=== PATIENT | male | born 1995 | race Caucasian/White ===

== ENCOUNTER 2016-12-02 21:50 | Emergency (ER) | payer SELFPAY ==
[~2016-12-02] VITALS: Ht 175.3 cm; Wt 112.9 kg
--- OUTSIDE RECORDS SUMMARY | 2016-12-02 21:59 | XMS REPORT ---
Author Author SHERRI MICHELE Organization [employer] Address Unknown Phone Unavailable Care Team Providers Care Tripper Name Role Phone SHERRI MICHELE CP Unavailable Allergies, Adverse Reactions, Alerts Substance Reaction Event Type N.K.D.A. Info Not Available Non Drug Allergy Problems Problem Type Condition Code Onset Dates Condition Status Problem Unspecified conjunctivitis 372.30 Active Problem Cough 786.2 Active Problem Nausea with vomiting 787.01 Active Problem Unspecified otalgia 388.70 Active Assessment Puncture wound without foreign body of unspecified finger without damage to nail, initial encounter S61.239A Active Problem Other diseases of nasal cavity and sinuses 478.19 Active Problem Acute suppurative otitis media without spontaneous rupture of eardrum 382.00 Active Medications Medication Code System Code Instructions Start Date End Date Status Dosage Augmentin [facility] [address]-66 875-125 MG Orally every 12 hrs Jan 24, 2015 Feb 03, 2015 1 tablet Procedures Procedure Coding System Code Date CULTURE, BACTERIA, OTHER CPT-4 01285 Jan 24, 2015 Office Visit, Est Pt., Level 3 CPT-4 55526 Jan 24, 2015 CULTURE BACTERIA ANAEROBIC CPT-4 14029 Jan 24, 2015 Vital Signs Date/Time: Jan 24, 2015 Temperature 97 F Weight 254 lbs Height 70.5 in BMI 35.93 Index Blood Pressure Diastolic 70 mmHg Blood Pressure Systolic 126 mmHg Cardiac Monitoring Heart Rate 80 bpm BMIPercentile 99.18 % Wt Percentile 99.36 % Results Name Result Date Reference Range Unit Abnormality Flag CULTURE, ANAEROBIC AND AEROBIC Summary Purpose [employer] Submission
--- NOTE | 2016-12-02 23:44 | ED Abdominal Pain ---
General Chief Complaint: -Male Stated Complaint: RT TESTICULAR PAIN/SWELLING Nursing Triage Note: PT STATES HE IS HAVING RIGHT TESTICULAR PAIN SINCE YESTERDAY. PT STATES "IT FEELS LIKE IT IS TWISTED". PT STATES HE HASN'T DONE ANYTHING DIFFERENT TO CAUSE THIS PAIN. PT STATES HE JUST LEFT [facility] A COUPLE HOURS AGO FOR THIS SAME REASON. Sepsis Screen: No Definite Risk Source of Information: Patient Exam Limitations: No Limitations History of Present Illness Time Seen By Provider: 23:26 Initial Comments Patient presents to ER with a primary complaint of right lower quadrant pain that seems to start in his back and right flank and extends to his right testicle. He feels that he has not injured his back or testicle recently. No history of hernia or other surgeries on the abdomen. No fevers, chills, sweats, malaise, nausea, vomiting, diarrhea, constipation, rash. No dysuria or discharge. Sexually monogamous with his . Allergies and Home Medications Allergies Coded Allergies: No Known Drug Allergies (Unverified , 12/02/16) Review of Systems Constitutional: No chills, No diaphoresis, No fever, No malaise, No weakness Respiratory: Denies Cough, Denies Shortness of Air Cardiovascular: Denies Chest Pain, Denies Lightheadedness Gastrointestinal: See HPI, Abdominal Pain (R flank), Denies Diarrhea, Denies Nausea, Denies Vomiting Genitourinary: Denies Burning, Denies Discharge, Denies Frequency Musculoskeletal: back pain (right lumbar) Skin: No pruritus, No rash Psychiatric/Neurological: Denies Headache, Denies Numbness, Denies Paresthesia Past [id number]-[id number]-Tsiyyd Hx Patient Social History Alcohol Use: Denies Use Recreational Drug Use: No Smoking Status: Never a Smoker 2nd Hand Smoke Exposure: No Recent Foreign Travel: No Contact w/Someone Who Travel: No Recent Infectious Disease Expo: No Recent Hopitalizations: No Immunizations Up To Date PED Vaccines UTD: No Seasonal Allergies Seasonal Allergies: No Physical Exam Vital Signs VS - Last 72 Hours, by Label 12/02/16 22:10 Temp 97.6 Pulse 85 Resp 20 B/P (MAP) 120/74 Pulse Ox 98 O2 Delivery Room Air Capillary Refill : Less Than 3 Seconds General Appearance: WD/WN, no apparent distress HEENT: PERRL/EOMI, pharynx normal Neck: non-tender, supple Respiratory: chest non-tender, lungs clear Gastrointestinal: normal bowel sounds, non tender, soft, no organomegaly Genital/Rectal: normal genital exam, No tenderness, other (testicle is nontender and unremarkable and palpation. No erythema or edema) Extremities: normal capillary refill (ER 60) Progress/Results/Core Measures Results/Orders Lab Results Laboratory Tests Test 12/02/16 23:48 Range/Units Urine Color YELLOW Urine Clarity CLEAR Urine pH 7 5-9 Urine Specific [place] 1.015 L 1.016-1.022 Urine Protein NEGATIVE NEGATIVE Urine Glucose (UA) NEGATIVE NEGATIVE Urine Ketones NEGATIVE NEGATIVE Urine Nitrite NEGATIVE NEGATIVE Urine Bilirubin NEGATIVE NEGATIVE Urine Urobilinogen NORMAL NORMAL MG/DL Urine Leukocyte Esterase NEGATIVE NEGATIVE Urine RBC (Auto) NEGATIVE NEGATIVE Urine RBC NONE /HPF Urine WBC NONE /HPF Urine Squamous Epithelial Cells RARE /HPF Urine Crystals NONE /LPF Urine Bacteria NEGATIVE /HPF Urine Casts NONE /LPF Urine Mucus NEGATIVE /LPF Urine Culture Indicated NO My Orders Orders - KATHIA CONNOR Ua Culture If Indicated (12/02/16 23:40) Vital Signs/I&O Vital Sign - Last 12Hours 12/02/16 22:10 Temp 97.6 Pulse 85 Resp 20 B/P (MAP) 120/74 Pulse Ox 98 O2 Delivery Room Air Blood Pressure Mean: 89 Departure Impression Impression: Primary Impression: Low back sprain Qualified Codes: S33.9XXA - Sprain of unspecified parts of lumbar spine and pelvis, initial encounter Disposition: 01 HOME, SELF-CARE Condition: Stable Departure-Patient Inst. Decision time for Depature: 01:13 Referrals: NO,LOCAL PHYSICIAN (PCP/Family) Primary Care Physician Patient Instructions: Testicular Torsion, Adult Add. Discharge Instructions: Ibuprofen or Tylenol would be appropriate. You try back brace. If he started having symptoms of just a torsion would include extreme pain swelling hesitancy urinating etc. return to the ER immediately. Otherwise plan on following with your primary care physician in the next week or 2. All discharge instructions reviewed with patient and/or family. Voiced understanding. KATHIA CONNOR Dec 02, 2016 23:43
[2016-12-02 23:58] LABS: BILIRUBIN,URINE NEGATIVE (NEGATIVE); KETONES,URINE NEGATIVE (NEGATIVE); LEUKOCYTE ESTERASE ,URINE NEGATIVE (NEGATIVE); NITRITE,URINE NEGATIVE (NEGATIVE); PH,URINE 7 (5-9); PROTEIN,URINE NEGATIVE (NEGATIVE); UROBILINOGEN,URINE NORMAL (NORMAL)
[2016-12-03 00:09] LABS: SQUAMOUS EPITHELIAL CELL,UR RARE /HPF
[2016-12-03 01:26] VITALS: BP 120/74
== END 2016-12-03 01:26 | disposition home or self-care (01) ==
LOC: EDUNIT# 21:50 → ER 21:54
DX: S33.9XXA Sprain of unspecified parts of lumbar spine and pelvis, initial encounter (principal); X58.XXXA Exposure to other specified factors, initial encounter
CPT/HCPCS: 81000; 99282